=== PATIENT | male | born 2000 | race African-American/Black ===

== ENCOUNTER 2021-05-01 15:20 | Emergency (ER) | payer BC, SELFPAY ==
[2021-05-01 15:27] VITALS: BP 155/62; PULSE 46; RESP 20; TEMP 36.7; O2SAT 99
--- NOTE | 2021-05-01 15:46 | ED.GENADULT ---
HPI - General Adult General Chief complaint: Skin/Abscess/Foreign Body Stated complaint: Bee sting Time Seen by Provider: 05/01/21 15:42 Source: RN notes reviewed History of Present Illness HPI narrative: Patient presents emergency department from home for bee sting. Patient states he was stung in his right forearm by a bee approximately an hour and a half ago. 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 She denies any swelling of the lips or tongue he denies any shortness of breath he denies any diffuse rash or any other symptoms at this time Related Data Allergies Allergy/AdvReac Type Severity Reaction Status Date / Time bee venom protein (honey bee) Allergy Swelling Verified 05/01/21 16:09 Review of Systems Review of Systems: Gen.: Denies fevers or chills Eyes: Denies eye pain or visual change ENT: Denies swelling of the lips or tongue Respiratory: Denies shortness of breath or cough CV: Denies chest pain or palpitations GI: Denies abdominal pain nausea, emesis Musculoskeletal: Denies back pain or muscle pain Neuro: Denies numbness, tingling, weakness or focal weakness Skin: See HPI Except as documented, all other systems reviewed and negative [facility] Past Medical History Medical History (Updated 05/01/21 @ 16:45 by Dong Mcguire DO) Patient denies significant medical history Social History Social History (Updated 05/01/21 @ 15:47 by Dong Mcguire DO) Smoking status: Never smoker Exam Narrative: APPEARANCE: No acute distress, nontoxic, resting in bed EYES: EOMI HEENT: Normocephalic, atraumatic, airway patent talking in full sentences, no swelling of the lips or tongue RESPIRATORY: No respiratory distress Clear to auscultation bilaterally with no rhonchi wheezing or rales. CARDIOVASCULAR: Regular rate and rhythm without murmurs rubs or gallops. ABDOMINAL: Soft, nontender, nondistended, no rebound or guarding MUSCULOSKELETAl: Moves all extremities. NEURO: Awake and alert. Following commands, speech normal, no focal deficits SKIN:: Warm, dry. No rashes lesions right medial forearm with a small less than 0.5 cm area of erythema and area of bee sting no stinger present no further erythema seen no diffuse rash PSYCHIATRIC: Normal affect/mood, Course Course Emergency Course: Patient observed in ED patient has had no sign of lips or tongue or shortness of breath no extensive rash area on forearm has improved with minimal area of erythema locally will discharge patient at this time Discussed with patient results of workup and diagnosis. Discussed need for follow-up with primary care, proper use of medication, and reasons to return to the emergency department. Patient understands and agrees to current treatment plan Vital Signs Vital signs: Vital Signs Temperature 98.0 F 05/01/21 15: Pulse Rate 46 L 05/01/21 15:27 Respiratory Rate 20 05/01/21 15:27 Blood Pressure 155/62 H 05/01/21 15:27 Pulse Oximetry 99 05/01/21 15:27 Temperature 98.0 F 05/01/21 15:27 Pulse Rate 46 L 05/01/21 15:27 Respiratory Rate 20 05/01/21 15:27 Blood Pressure 155/62 H 05/01/21 15:27 Pulse Oximetry 99 05/01/21 15:27 Medical Decision Making Vital Signs Vital Signs: Vital Signs Temperature 98.0 F 05/01/21 15:27 Pulse Rate 46 L 05/01/21 15:27 Respiratory Rate 20 05/01/21 15:27 Blood Pressure 155/62 H 05/01/21 15:27 Pulse Oximetry 99 05/01/21 15:27 Temperature 98.0 F 05/01/21 15:27 Pulse Rate 46 L 05/01/21 15:27 Respiratory Rate 20 05/01/21 15:27 Blood Pressure 155/62 H 05/01/21 15:27 Pulse Oximetry 99 05/01/21 15:27 Discharge
[2021-05-01] MEDS: diphenhydrAMINE HCl CAP 25 MG CAPSULE PO (16:05)
[2021-05-01] MEDS: FAMOTIDINE 20 MG TABLET PO (16:05)
== END 2021-05-01 17:12 | disposition home or self-care (01) ==
PROVIDERS: Emergency Provider Emergency Medicine
DX: T63.441A Toxic effect of venom of bees, accidental (unintentional), initial encounter (principal)
CPT/HCPCS: 99283; A9270